=== PATIENT | male | born 1980 | race African-American/Black ===

== ENCOUNTER 2017-07-08 15:53 | Outpatient (CLI) | END 2017-07-08 15:54 | disposition home or self-care (01) | LOC: RHC-LAB 15:53 | PROVIDERS: ATTEND Nurse Practitioner Family | DX: I10 Essential (primary) hypertension (principal) | CPT/HCPCS: 36415; 80053; 80061; 84443; 85025 ==

== ENCOUNTER 2017-07-12 09:39 | Outpatient (CLI) | END 2017-07-12 09:40 | disposition home or self-care (01) | LOC: LAB 09:39 | PROVIDERS: ATTEND Nurse Practitioner Family | DX: R73.9 Hyperglycemia, unspecified (principal) | CPT/HCPCS: 36415; 83036 ==